=== PATIENT | female | born 2000 | race Caucasian/White ===

== ENCOUNTER 2022-08-07 23:16 | Inpatient (IN) | payer MEDICAID, MEDICARE ==
[~2022-08-07] VITALS: Ht 154.9 cm; Wt 22.9 kg
[~2022-08-07 23:16] MED LIST: FERR325T6 PO; PV W1TAB21 PO
[2022-08-08] MEDS ORDERED: MORPHINE SULFATE 4 MG/ML CPJ (NOT FOR IM USE) IV ONE
[2022-08-08] MEDS ORDERED: ONDANSETRON HCL 4MG/2ML INJ IV ONE
[2022-08-08 00:07] LABS: BASOPHILS % 0.2 % (0.0-2.0); EOSINOPHILS % 0.1 % (0.0-5.0); HEMATOCRIT. 44.7 % (36.0-48.0); LYMPHOCYTES % 11.7 % (20.0-50.0); MEAN CORPUSCULAR HEMOGLOBIN 30.6 pg (28.0-32.0); MEAN CORPUSCULAR VOLUME 90.9 fL (81.0-99.0); MONOCYTES % 8.2 % (2.0-8.0); NEUTROPHILS % 79.8 % (40.0-76.0); PLATELET 394 x1000/uL (130-400); RED BLOOD CELL COUNT 4.91 mill/uL (4.2-5.4)
[2022-08-08 00:13] LABS: CHLORIDE 103 mEq/L (98-107)
[2022-08-08 00:15] LABS: HCG SCREEN NEGATIVE
[2022-08-08] MEDS ORDERED: SODIUM CHLORIDE 0.9% 1,000 ML IV ONE (01:00)
[2022-08-08] MEDS ORDERED: PIPERACILLIN/TAZ 3.375G PREMIX 50 ML IV ONE (01:30)
[2022-08-08] MEDS ORDERED: MORPHINE SULFATE 2 MG/ML CPJ (NOT FOR IM USE) IV ONE (03:45)
[2022-08-08 03:55] LABS: CLARITY URINE CLOUDY (CLEAR); COLOR URINE RED (YELLOW); KETONES URINE NEGATIVE (NEGATIVE); LEUKOCYTE ESTERASE URINE 3+ (NEGATIVE); NITRITE URINE NEGATIVE (NEGATIVE); OCCULT BLOOD URINE 3+ (NEGATIVE); PH URINE 5.5 (4.5-8.0); PROTEIN URINE 1+ (NEGATIVE); SPECIFIC GRAVITY URINE 1.011 (1.005-1.030)
[2022-08-08 08:00] VITALS: BP 117/78
[2022-08-08] MEDS ORDERED: HYDROCODONE/ACETAMINOPHEN 5/325MG TABLET PO PRN (08:45)
[2022-08-08] MEDS ORDERED: MORPHINE SULFATE 2 MG/ML CPJ (NOT FOR IM USE) IV PRN (08:45)
[2022-08-08] MEDS: SODIUM CHLORIDE 0.9% 1,000 ML IV SCH ×2 (08:45→20:26)
[2022-08-08] MEDS ORDERED: NALOXONE HCL 0.4MG/ML VIAL IV PRN (09:00)
[2022-08-08 10:33] VITALS: BP 113/66
[2022-08-08 10:52] VITALS: BP 113/66
[2022-08-08 12:00] VITALS: BP 106/71
[2022-08-08] MEDS: PIPERACILLIN/TAZOBACTAM 3.375 G in DEXTROSE 5% WATER 50 ML IV SCH ×3 (12:10→21:01)
[2022-08-08] MEDS ORDERED: KCL 20MEQ/100ML PREMIX 100 ML IV NR (13:00)
[2022-08-08] MEDS ORDERED: ONDANSETRON HCL 4MG/2ML INJ IV PRN (13:00)
[2022-08-08 16:00] VITALS: BP 109/68
[2022-08-08 16:20] LABS: BASOPHILS % 0.2 % (0.0-2.0); EOSINOPHILS % 0.2 % (0.0-5.0); HEMATOCRIT. 42.7 % (36.0-48.0); HEMOGLOBIN. 14.3 g/dL (12.0-16.0); LYMPHOCYTES % 17.9 % (20.0-50.0); MEAN CORPUSCULAR VOLUME 92.5 fL (81.0-99.0); MONOCYTES % 7.1 % (2.0-8.0); NEUTROPHILS % 74.6 % (40.0-76.0); PLATELET 315 x1000/uL (130-400); RED BLOOD CELL COUNT 4.62 mill/uL (4.2-5.4)
[2022-08-08 16:29] LABS: INR 1.1; PROTHROMBIN TIME 11.4 sec (9.6-11.0)
[2022-08-08 16:42] LABS: CHLORIDE 108 mEq/L (98-107)
[2022-08-08 16:56] LABS: TOTAL IRON BINDING CAPACITY 323 ug/dL (250-450)
[2022-08-08 17:29] LABS: FERRITIN 173 ng/mL (10-291)
[2022-08-08 18:15] LABS: VITAMIN B12 SERUM >2000 pg/mL pg/mL (211-911)
[2022-08-08 18:19] LABS: FOLIC ACID (FOLATE) SERUM > 20.00 ng/mL (>5.38)
[2022-08-08 18:46] LABS: AMYLASE 1809 IU/L (25-115)
[2022-08-08 20:00] VITALS: BP 122/73
[2022-08-09] VITALS (7 sets, daily range): BP systolic 92–117; BP diastolic 49–70
[2022-08-09 04:48] LABS: CHLORIDE 109 mEq/L (98-107)
[2022-08-09 05:03] LABS: AMYLASE 851 IU/L (25-115)
[2022-08-09] MEDS: PIPERACILLIN/TAZOBACTAM 3.375 G in DEXTROSE 5% WATER 50 ML IV SCH ×3 (05:04→23:06)
[2022-08-09] MEDS: SODIUM CHLORIDE 0.9% 1,000 ML IV SCH ×2 (05:05→13:46)
[2022-08-09 06:33] LABS: BASOPHILS % 0.2 % (0.0-2.0); EOSINOPHILS % 0.4 % (0.0-5.0); HEMOGLOBIN. 13.6 g/dL (12.0-16.0); LYMPHOCYTES % 17.7 % (20.0-50.0); MEAN CORPUSCULAR HEMOGLOBIN 31.1 pg (28.0-32.0); MEAN CORPUSCULAR VOLUME 91.3 fL (81.0-99.0); MEAN PLATELET VOLUME 8.5 fl (7.4-10.4); MONOCYTES % 6.9 % (2.0-8.0); NEUTROPHILS % 74.8 % (40.0-76.0); PLATELET 284 x1000/uL (130-400); RED BLOOD CELL COUNT 4.38 mill/uL (4.2-5.4)
[2022-08-09] MEDS ORDERED: POTASSIUM CHLORIDE INJ 40 MEQ in DEXT 5% WATER 250 ML IV ONE (09:15)
[2022-08-09] MEDS ORDERED: POTASSIUM CHLORIDE 20MEQ/PACKET PO NR (10:00)
[2022-08-09] MEDS ORDERED: KCL 20MEQ/100ML X 2 FOR TOTAL KCL 40MEQ/200ML IV SCH (10:30)
[2022-08-10] VITALS: BP 112/75
== END 2022-08-10 00:10 | disposition short-term general hospital (02) | DRG 720 ==
LOC: ER 23:16 → EDBEDREQ 08-08 03:35 → ENRESERV 08-08 06:56 → 6EST 08-08 08:01 → 8WST 08-08 09:51
PROVIDERS: ADMIT Internal Medicine; ATTEND Internal Medicine
DX: A41.9 Sepsis, unspecified organism (principal); K85.10 Biliary acute pancreatitis without necrosis or infection; K80.00 Calculus of gallbladder with acute cholecystitis without obstruction; N39.0 Urinary tract infection, site not specified; E87.6 Hypokalemia; D64.9 Anemia, unspecified; E80.6 Other disorders of bilirubin metabolism; Z20.822 Contact with and (suspected) exposure to COVID-19
CPT/HCPCS: 36415; 71045; 74177; 74181; 76705; 80053; 80076; 81003; 82150; 82248; 82607; 82728; 82746; 83540; 83550; 84703; 85025; 87426; 99285; C9803; J2270; J2405; J2543; J3480; J7030; J7060